=== PATIENT | male | born 1940 | race Caucasian/White ===

== ENCOUNTER 2020-10-21 08:36 | Emergency (ER) | payer MEDICARE, OTHER ==
[~2020-10-21 08:36] MED LIST: ASPIRIN CHEWABL81 MG PO; ATIVAN1 MG PO; CARDURA4 MG PO; CELEXA20 MG PO; CERTAGEN1 EACH PO; CYCLOBENZAPRINE10 MG PO; DEXILANT60 MG PO; LAXATIVE5 M1 PO; OMEPRAZOLE40 MG PO; VICODIN 10/3251 EACH PO; ZOLPIDEM 5MG TAB5 MG PO
[2020-10-21] MEDS ORDERED: PREDNISONE 20MG20 MG PO (09:16)
[2020-10-29] MEDS ORDERED: NEURONTIN300 MG PO (09:54)
== END 2020-10-21 09:47 | disposition home or self-care (01) ==
LOC: FER 08:36
DX: M54.12 Radiculopathy, cervical region (principal)
CPT/HCPCS: 99283; J1885